=== PATIENT | male | born 1980 | race African-American/Black ===

== ENCOUNTER 2019-07-02 04:05 | Emergency (ER) | payer MEDICARE, MEDICAID ==
[~2019-07-02] VITALS: Ht 188 cm; Wt 77.8 kg
[2019-07-02 04:08] VITALS: BP 198/114
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
--- NOTE | 2019-07-02 04:50 | NUR ---
PT REFUSING VITALS, PT STS PULSE OX IS CUTTING OFF HIS CIRCULATION AND HE IS UNABLE TO BREATH AND NEEDS IT REMOVED. PT STS BLOOD PRESSURE CUFF IS "TERRIBLE AND NEEDS IT REMOVED" HE CANNOT HANDLE IT BEING ON HIS ARM. PA UPDATED
--- NOTE | 2019-07-02 05:17 | NUR ---
PT BACK FROM IMAGING
--- NOTE | 2019-07-02 05:22 | NUR ---
PT EDUCATED ON NEED FOR URINE SAMPLE. PT PROVIDING SAMPLE AT THIS TIME
[2019-07-02 05:32] LABS: ALBUMIN 2.2 g/dL (3.4-5.0); ANION GAP 6 mmol/L (5-15); CALCIUM 8.1 mg/dL (8.5-10.1); CHLORIDE 113 mmol/L (98-107)
--- NOTE | 2019-07-02 05:32 | NUR ---
URINE SENT TO LAB
[2019-07-02 05:35] LABS: ALANINE AMINOTRANSFERASE 133 U/L (12-78); ALKALINE PHOSPHATASE 354 U/L (45-117); BILIRUBIN,TOTAL 0.7 mg/dL (0.2-1.0); CREATININE 0.99 mg/dL (0.7-1.3); TOTAL PROTEIN 8.1 g/dL (6.4-8.2)
[2019-07-02 05:39] LABS: MD YES; MEAN CORPUSCULAR HGB CONC 32.3 g/dL (33.2-36.2); MEAN CORPUSCULAR VOLUME 80.7 fL (81-97); MEAN PLATELET VOLUME 10.9 fL (7.4-10.4); PLATELET COUNT 154 x10^3/uL (130-400); RED BLOOD COUNT 4.54 x10^6/uL (4.38-5.82)
[2019-07-02 05:39] LABS: MICROSCOPIC AUTO
[2019-07-02 05:42] LABS: LYMPH#(MANUAL) 1.38 x10^3/uL (1-3.4); LYMPHS% (MANUAL) 26 % (22-44); MONOS#(MANUAL) 0.64 x10^3/uL (0.3-2.7); MONOS% (MANUAL) 12 % (2-9); SEG#(MANUAL) 3.29 x10^3/uL (1.8-6.8); SEGS% (MANUAL) 62 % (42-75)
[2019-07-02 05:43] LABS: <PLATELET ESTIMATE> ADEQUATE; ANISOCYTOSIS 1+; HYPOCHROMIA 1+; LARGE PLATELETS 1+; MICROCYTOSIS 1+
[2019-07-02 05:44] LABS: CULTURE INDICATED? NO
[2019-07-02 05:54] LABS: AMPHETAMINE SCREEN, URINE Negative (Negative); BARBITURATE SCREEN, URINE Negative (Negative); BENZODIAZEPINE SCREEN, URINE Negative (Negative); CANNABINOID SCREEN, URINE Negative (Negative); COCAINE SCREEN, URINE Negative (Negative); METHADONE SCREEN, URINE Negative (Negative); OPIATE SCREEN, URINE Negative (Negative)
--- NOTE | 2019-07-02 06:06 | NUR ---
ALL RESULTS BACK AT THIS TIME OLYA UP FOR RECHECK
== END 2019-07-02 06:47 | disposition left against medical advice (07) ==
LOC: ED 05:18
DX: R10.84 Generalized abdominal pain (principal); F41.9 Anxiety disorder, unspecified
CPT/HCPCS: 36415; 74021; 80053; 80307; 81001; 83690; 85025; 99284

== ENCOUNTER 2019-07-15 16:06 | Emergency (ER) | payer MEDICARE, MEDICAID ==
[~2019-07-15] VITALS: Ht 188 cm; Wt 83.0 kg
[2019-07-15 16:16] VITALS: BP 177/117
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
--- NOTE | 2019-07-15 16:43 | NUR ---
PER [facility] ([facility]), PT MAY RETURN AFTER MEDICALLY CLEARED.
--- NOTE | 2019-07-15 16:51 | NUR ---
ERMD IN TO EVAL PT, PERFORMED BEDSIDE US. PER ERMD PT IS HAVING CHRONIC CONDITION, NO EMERGENT NEED, PT MEDICALLY CLEARED TO RETURN TO [facility]
--- NOTE | 2019-07-15 17:34 | NUR ---
THROUGHPUT: [facility] TO TRANSPORT PT BACK TO FACILITY ~1930 TONIGHT & ACCOMPANIED BY [facility] RIDER (BEN).
--- NOTE | 2019-07-15 18:53 | NUR ---
REPORT FROM SHWETHA ARGUETA ASSUMING CARE OF PT.
== END 2019-07-15 19:45 ==
LOC: ED 16:25
DX: K74.60 Unspecified cirrhosis of liver (principal); R16.0 Hepatomegaly, not elsewhere classified; R10.84 Generalized abdominal pain
CPT/HCPCS: 99285